=== PATIENT | male | born 1985 | race Caucasian/White ===

== ENCOUNTER 2016-10-18 14:49 | Emergency (ER) | payer SELFPAY ==
[2016-10-18 14:55] VITALS: BP 140/86; PULSE 59; RESP 18; TEMP 98.2; O2SAT 100
--- NOTE | 2016-10-18 16:30 | EDPHY ---
H & P Time Seen by Provider: 10/18/16 16:29 HPI/ROS: Chief complaint. Painful sore on scrotum HPI. 30-year-old man game male presents with painful sores on his scrotum for 1 day. Says they itch and they burn and began with small vesicles on the scrotum. He has a sore on his right index finger as well that has been present for several weeks. Unknown trauma but began also with the small vesicle he thinks. Last sexual contact was oral sex 3 weeks ago. He has had a history of oral herpes. No urinary symptoms. No discharge from penis. He possibly has had similar sores on his scrotum previously ROS Constitutional. no fever/chills, no weakness Eyes. no problems with vision ENT. no sore throat, no nasal drainage Cardiovascular. no chest pain Respiratory. no shortness of breath, no cough Abdominal. no abdominal pain, no nausea/vomiting, no diarrhea . no problems urinating MS. no calf pain/swelling, no neck/back pain, no joint pain Skin. Painful blisters on scrotum and small lesion on the right index finger Lymph. no swollen glands Neuro. no headache, no dizziness, no difficulty walking or with speech Past Medical/Surgical History: Healthy Social History: Single, daily smoker, no alcohol Smoking Status: Current every day smoker Physical Exam: General Appearance: Alert pleasant well-developed male mild distress vital signs are stay Eyes: Pupils equal and round no pallor or injection. ENT, Mouth: Mucous membranes are moist. Respiratory: There are no retractions, lungs are clear to auscultation. Cardiovascular: Regular rate and rhythm. Gastrointestinal: Abdomen is soft and nontender, no masses, bowel sounds normal. Neurological: Awake and alert, sensory and motor exams grossly normal. Skin: Vesicles with some erythema on the scrotum. No findings on the shaft or glans of the penis. Musculoskeletal: Neck is supple nontender. Extremities small 0.25 x 0.25 superficial sore on the right index finger without evidence for infection Psychiatric: Patient is oriented X 3, there is no agitation. Constitutional: Initial Vital Signs Temperature (C) 36.8 C 10/18/16 14:53 Heart Rate 59 L 10/18/16 14:53 Respiratory Rate 18 10/18/16 14:53 Blood Pressure 140/86 H 10/18/16 14:53 O2 Sat (%) 100 08/10/17 14:53 O2 Delivery Mode Room Air Allergies/Adverse Reactions: No Known Allergies Allergy (Unverified 10/18/16 14:52) Home Medications: Medication Instructions Recorded Acyclovir [Zovirax 200 mg (*)] 200 mg PO 5XD #50 cap 10/18/16 Medical Decision Making ED Course/Re-evaluation: Patient remained stable. He and I discussed treatment plan including criteria for return and importance of follow-up and further evaluation. He expresses understanding and agreement Differential Diagnosis: This appears to be herpetic type lesions on the scrotum. I really unable to make a diagnosis of herpetic emy on his finger. This is a nonspecific looking superficial sore. No evidence for infection. Departure - Departure Disposition: Home, Routine, Self-Care Clinical Impression: Venereal herpes Qualifiers: Herpes simplex infection site: other site of male genital organs Qualified Code (s): A60.02 - Herpesviral infection of other male genital organs Condition: Good Instructions: Genital Herpes Simplex (ED) Additional Instructions: Acyclovir as medication to heal the herpes. Keep antibiotic ointment twice daily on your finger covered with Band-Aid to help it heal. Return for worsening symptoms. I will give you the name of Infectious Disease physician for follow-up and further evaluation Referrals: NONE *PRIMARY CARE P,. [Primary Care Provider] - As per Instructions Dl Patel MD [Medical Doctor] - 5-7 days, call for appt. Prescriptions: Acyclovir [Zovirax 200 mg (*)] 200 mg PO 5XD #50 cap
== END 2016-10-18 17:19 | disposition home or self-care (01) ==
DX: A60.02 Herpesviral infection of other male genital organs (principal); F17.200 Nicotine dependence, unspecified, uncomplicated